=== PATIENT | female | born 1970 | race Caucasian/White ===

== ENCOUNTER 2023-04-23 09:40 | Outpatient (OUT) | payer OTHER, SELFPAY ==
--- NOTE | 2023-04-23 10:11 | MM_ITS ---
Patient: MAIRA GONZALEZ Exam Date: 04/23/2023 : 1970 Gender:F Ordering : Non-Staff Physician Admission #: [id number] Family : CALI MCKEON Order #: [id number] CLICK HERE TO VIEW EXAM RADIOLOGY REPORT PROCEDURE: MM TOMOSYNTHESIS SCREENING BI COMPARISON: MG MAMM SCREEN 3D GISSEL CAD, 12/26/2021. MG MAMM SCREEN 3D GISSEL CAD, 11/22/2020. INDICATIONS: Screening Calculator Name NCI Breast Cancer Risk Assessment Tool 5 Year Breast Cancer Risk 1.20% Lifetime Breast Cancer Risk 8.30% Personal Breast Cancer No Personal Ovarian Cancer No Treatments None Family Cancers Grandfather-paternal with lung/liver cancer at age 70; Aunt-paternal with breast cancer at age ~60; Grandfather-maternal with prostate.lung cancer at age 70. LOCATION: [facility] BREAST COMPOSITION: Scattered areas fibroglandular density. FINDINGS: DIAGNOSTIC CATEGORY 2--BENIGN FINDING. NO CHANGE FROM COMPARISON. Scattered benign-appearing calcifications are present. Scattered benign-appearing lymph nodes are present. RIGHT BREAST: No significant suspicious finding. LEFT BREAST: No significant suspicious finding. RECOMMENDATIONS: ROUTINE MAMMOGRAM AND CLINICAL EVALUATION IN 12 MONTHS. PLEASE NOTE: A NORMAL MAMMOGRAM DOES NOT EXCLUDE THE POSSIBILITY OF BREAST CANCER. A CLINICALLY SUSPICIOUS PALPABLE LUMP SHOULD BE BIOPSIED. Dictated by: Venkat Garcia MD on 04/23/2023 at 11:10 Approved by: Venkat Garcia MD on 04/23/2023 at 11:13
== END 2023-04-23 09:41 | disposition home or self-care (01) ==
LOC: MAMMO 09:40
PROVIDERS: Family Provider Obstetrics & Gynecology; PCP Obstetrics & Gynecology
DX: Z12.31 Encounter for screening mammogram for malignant neoplasm of breast (principal); Z80.1 Family history of malignant neoplasm of trachea, bronchus and lung; Z80.0 Family history of malignant neoplasm of digestive organs
CPT/HCPCS: 77063; 77067

== ENCOUNTER 2024-08-11 09:38 | Outpatient (OUT) | payer OTHER, SELFPAY ==
--- NOTE | 2024-08-11 09:42 | MM_ITS ---
Patient Name: MAIRA GONZALEZ MR#: [id number] : 1970 Exam Date: 08/11/2024 Ordering Doctor: DR RUCHI MONAHAN RADIOLOGY REPORT PROCEDURE: MM TOMOSYNTHESIS SCREENING BI COMPARISON: MM TOMOSYNTHESIS SCREENING BI, 04/23/2023. MG MAMM SCREEN 3D GISSEL CAD, 12/26/2021. MG MAMM SCREEN 3D GISSEL CAD, 11/22/2020. MG MAMM GISSEL SCRN W CAD DIG, 04/11/2013. INDICATIONS: Screening Calculator Name NCI Breast Cancer Risk Assessment Tool 5 Year Breast Cancer Risk 1.20% Lifetime Breast Cancer Risk 8.10% Personal Breast Cancer No Personal Ovarian Cancer No Treatments None Family Cancers Grandfather-paternal with lung/liver cancer at age 70; Aunt-paternal with breast cancer at age ~60; Grandfather-maternal with prostate.lung cancer at age 70. LOCATION: [facility] BREAST COMPOSITION: There are scattered areas of fibroglandular density. FINDINGS: DIAGNOSTIC CATEGORY 2--BENIGN FINDING: RIGHT BREAST: No significant suspicious finding. Scattered benign-appearing calcifications are present. No significant change has occurred. LEFT BREAST: No significant suspicious finding. Scattered benign-appearing calcifications are present. No significant change has occurred. RECOMMENDATIONS: ROUTINE MAMMOGRAM AND CLINICAL EVALUATION IN 12 MONTHS. PLEASE NOTE: A NORMAL MAMMOGRAM DOES NOT EXCLUDE THE POSSIBILITY OF BREAST CANCER. A CLINICALLY SUSPICIOUS PALPABLE LUMP SHOULD BE BIOPSIED. Dictated by: Wilder Gomez M.D. on 08/11/2024 at 12:18 Approved by: Wilder Gomez M.D. on 08/11/2024 at 12:20
== END 2024-08-11 09:39 | disposition home or self-care (01) ==
LOC: MAMMO 09:38
PROVIDERS: Family Provider Obstetrics & Gynecology; PCP Internal Medicine; Visit Provider Obstetrics & Gynecology
DX: Z12.31 Encounter for screening mammogram for malignant neoplasm of breast (principal); Z80.1 Family history of malignant neoplasm of trachea, bronchus and lung; Z80.3 Family history of malignant neoplasm of breast; Z80.42 Family history of malignant neoplasm of prostate
CPT/HCPCS: 77063; 77067

== ENCOUNTER 2025-09-04 10:55 | Outpatient (OUT) | payer OTHER, SELFPAY ==
--- OUTSIDE RECORDS SUMMARY | 2025-09-04 10:58 | XMS_ITS | Clinical Summary ---
Author Organization [facility] Address [address] [place], [place] [id number] Care Team Providers Care Custom Shoemaker Name Role Phone Esdras Harrell DO, Charles Lewis Primary [facility] Provi norma Allergies No known active allergies Medications MedicationSigDispense QuantityRefillsLast FilledStart DateEnd DateStatus ZETIA 10 MG TAB Active SYNTHROID 100 MCG TAB Active Social History Tobacco UseTypesPacks/DayYears UsedDateSmoking Tobacco: NeverAlcohol UseStandard Drinks/WeekCommentsNot Asked0 (1 standard drink = 0.6 oz pure alcohol) CommentsNoSex and Gender InformationValueDate RecordedSex Assigned at BirthNot on fileLegal KrcHurbfo59/02/2012 7:32 AM ESTGender IdentityNot on fileSexual OrientationNot on file Last Filed Vital Signs Vital SignReadingTime TakenCommentsBlood Vqibjxgn575/7509/05/2005 7:35 AM EST Vyvct302309/05/2005 7:35 AM HNVAzippddgokw21.7 ??C (98.1 ??F)09/05/2005 7:35 AM ESTRespiratory Wifv7946 7:35 AM ESTOxygen Hboqykiutg88%09/05/2005 7:35 AM ESTInhaled Oxygen Concentration--Lekwob75 kg (150 lb)07/06/2005 11:00 AM EST Ewtcgn321.5 cm (5' 2 )07/06/2005 11:00 AM ESTBody Mass Index27.441 11:00 AM EST Plan of Treatment Health MaintenanceDue DateLast DoneCommentsAnxiety Kaldxfgwn18/16/1986Depression Yniiuoaio63/16/1986HIV Uaowcurpy27/16/1986Hepatitis C Xnhfcvops15/16/1986 DTaP,Tdap,Td Vaccine (1 - Tdap)01/19/1987Hepatitis B Vaccine (1 of 3 - 19+ 3- dose series)01/19/1987Cervical Cancer Bsbceqeav85/16/1989Mammogram Screening 2008CT Gqbtqctfyaoi36/16/2013Cologuard (FIT-DNA)01/19/2013Colonoscopy 01/19/2013Colorectal Cancer Wfrolfxzc88/16/2013Diabetes Vhxmcaype52/16/2013Fecal Occult Blood01/19/2013Lipid Dhckakbdp00/16/3230Bzalbzkgezzam88/16/2013 Pneumococcal Vaccine: 50+ (1 of 1 - PCV)01/19/2018Shingrix Vaccine (1 of 2) 01/19/2018Covid-19 Vaccine (1 - 2024- season)2025Influenza Vaccine (#1) 2025RSV Vaccine (1 - 1-dose 75+ series)01/19/[address] [place] [address] Care Teams Team MemberRelationshipSpecialtyStart DateEnd Date Rich Dewitt Jr., [facility] [place] [id number] PCP - General06/03/05
--- OUTSIDE RECORDS SUMMARY | 2025-09-04 10:58 | XMS_ITS | Clinical Summary ---
Author Organization [facility] Address [address] [place] [address] Phone Care Team Providers Care Molding Line Operator Name Role Phone AudraRich bo Primary Care Provider + [phone] Social History Tobacco UseTypesPacks/DayYears UsedDateSmoking Tobacco: Never Assessed CommentsUnknownSex and Gender InformationValueDate RecordedSex Assigned at Not on fileLegal SrqXtozon29/24/2024 1:49 PM EDTGender IdentityNot on fileSexual OrientationNot on file Plan of Treatment Health MaintenanceDue DateLast DoneCommentsCT Nntdywckdwdf1968Colonoscopy 1970Colorectal Cancer Jflaxgcwu1968FIT-DNA (Cologuard)1970FIT 1970HIV Pgbmfutop1968Lipid Panel01/20/19686906Vgpmeupaznutu1968MMR Vaccines (1 of 1 - Standard series)01/19/1969Hepatitis C Onzzzbjqg71/16/1986 Hepatitis B Vaccines (1 of 3 - 19+ 3-dose series)01/19/1987Cervical Cancer Qhtgtbjds53/16/1989HPV/Rpximi7201/19/1989Pap Smear01/19/1989DTaP/Tdap/Td Vaccines (1 - Tdap)01/19/1990Pneumococcal Vaccine (1 of 1 - PCV)01/19/2018Zoster Vaccines (1 of 2)01/19/20187572Jtzbtdqin19/19/202203/Yearly Adult Igxccjyj26/03/2025 04/07/2024, 3COVID-19 Vaccine ( season)512/10/2021, 07/11/2021, 10/07/2020, Additional history existsInfluenza Vaccine (#1) 507/, 07/05/2020, 06/06/2019HIB VaccinesAged OutNo longer eligible based on patient's age to complete this topicHPV VaccinesAged OutNo longer eligible based on patient's age to complete this topicHepatitis A VaccinesAged OutNo longer eligible based on patient's age to complete this topic IPV VaccinesAged OutNo longer eligible based on patient's age to complete this topicMeningococcal VaccineAged OutNo longer eligible based on patient's age to complete this topicRotavirus VaccinesAged OutNo longer eligible based on patient's age to complete this topic Insurance * Guarantor: INSTITUTIONAL,BILLING PARAccount TypeRelation to PatientDate of BirthPhoneBilling AddressPersonal/FamilyOther [address] [place] [address] * Guarantor: INSTITUTIONAL,BILLING PARAccount TypeRelation to PatientDate of BirthPhoneBilling AddressPersonal/FamilyOther [address] [place] [address] Care Teams Team MemberRelationshipSpecialtyStart DateEnd Date Rich Dewitt DO [facility] [place] [address] PCP - GeneralInternal Gafmgmlj39/30/24
--- OUTSIDE RECORDS SUMMARY | 2025-09-04 10:58 | XMS_ITS | CCD ---
Author Organization [facility] Care Team Providers Care Meat Team Lead Name Role Phone SHIVAM, DR PALACIOS Admitting Unavailable SHIVAM, DR PALACIOS Attending Unavailable SHIVAM, DR PALACIOS Consulting Unavailable WEST, DR KITA Daley Consulting Unavailable HERO, DR HOPPER Consulting Unavailable Rich Langley DO Primary Care Provider [phone] RICH LANGLEY Referring Unavailable RICH LANGLEY Primary Care Unavailable Rich Langley MD Primary Care Provider [phone] Zachariah JACKSON, Marcia Unavailable Marcia Burleson NP Unavailable Unavailable MARCIA BURLESON Attending Unavailable RUCHI MONAHAN Attending Unavailable Rich Langley MD Primary Care Provider Marcia Burleson NP Unavailable Unavailable Allergies Allergy ClassificationReported Allergen(s)Allergy TypeDate of OnsetReaction(s) Facility (1 source)ALLERGIES NOT ON FILE; Translations: [ALLERGIES NOT ON FILE]Propensity to adverse reactions (disorder)[facility] Repository Medications Current Medications MedicationDrug Class(es)DatesSig (Normalized)Sig (Original)acyclovir 800 mg oral tablet (1 source)Herpesvirus Nucleoside Analog DNA Polymerase Inhibitor, Herpes Simplex Virus Nucleoside Analog DNA Polymerase Inhibitor, Herpes Zoster Virus Nucleoside Analog DNA Polymerase InhibitorStart: 07-84-3633axor 1 tablet by mouth three times daily as neededacyclovir (Zovirax) 800 MG tablet Take 800 mg by mouth 3 (three) times a day as needed 01/02/2025 Activecetirizine hydrochloride 5 mg chewable tablet (5 sources)Histamine-1 Receptor Antagonistcetirizine (ZyrTEC) 5 MG chewable tablet Chew Daily. Activecinnamon bark 500 mg oral capsule (1 source)Start: 91-30-4458opjadyia 500 MG capsule 10/09/2023 Active cyclobenzaprine hydrochloride 10 mg oral tablet (3 sources)Muscle RelaxantStart: 12-05-2024 End: 70-86-7127tjib 1 tablet by mouth at bedtimecyclobenzaprine (Flexeril) 10 MG tablet Indications: Myalgia Take 1 tablet (10 mg) by mouth at bedtime 90 tablet 3 12/20/2024 12/15/2025 Activeempagliflozin 25 mg oral tablet (5 sources)Sodium-Glucose Cotransporter 2 Inhibitorempagliflozin (Jardiance) 25 MG Take by mouth. Activeergocalciferol 1.25 mg oral capsule (5 sources)Provitamin D2 CompoundVitamin D, Ergocalciferol, 79186 units capsule 1 capsule 1 (one) time each day at the same time. Activeestradiol 1 mg oral tablet (5 sources)EstrogenStart: 04-07-2024 End: 77-74-0218jsjv 1 tablet by mouth once dailyestradiol (Estrace) 1 MG tablet Indications: Postmenopausal HRT (hormone replacement therapy) Take 1 tablet (1 mg) by mouth Daily 90 tablet 3 04/20/2025 04/20/2026 Activeezetimibe 10 mg oral tablet (5 sources)Dietary Cholesterol Absorption InhibitorStart: 32-95-2880dyin 1 tablet by mouth in the morningezetimibe (Zetia) 10 MG tablet Take 10 mg by mouth in the morning. 01/25/2023 Activehydrocortisone 25 mg/ml rectal cream (1 source)CorticosteroidStart: 91-18-9237lblznuxmgveszu (Anusol-HC) 2.5 % rectal cream USE DIRECTED RECTALLY 01/03/2025 Activelevothyroxine sodium 0.125 mg oral tablet (5 sources)l-ThyroxineStart: 13-73-6705tfov 1 tablet by mouth in the morning levothyroxine (Synthroid, Levoxyl) 125 MCG tablet Take 125 mcg by mouth in the morning. 01/09/2023 ActivemedroxyPROGESTERone acetate 2.5 mg oral tablet (5 sources)ProgestinStart: 04-07-2024 End: 34-67-6012emdk 1 tablet by mouth once daily, then take 1 tablet by mouth once dailymedroxyPROGESTERone (Provera) 2.5 MG tablet Indications: Postmenopausal HRT (hormone replacement therapy) Take 1 tablet (2.5 mg) by mouth Daily Take 1 tablet by mouth daily. 90 tablet 3 04/20/2025 04/20/2026 Active metFORMIN hydrochloride 1000 mg oral tablet (5 sources)Biguanidetake 1 tablet by mouth in the morningmetFORMIN (Glucophage) 1000 MG tablet Take 1,000 mg by mouth in the morning and 1,000 mg in the even ing. Take with meals. Activemontelukast 10 mg oral tablet (5 sources)Leukotriene Receptor AntagonistSingulair 10 MG tablet 1 (one) time each day at the same time. Activenebivolol 10 mg oral tablet (5 sources)Start: 07-86-6427cfmf 1 tablet by mouth once dailynebivolol (Bystolic) 10 MG tablet Take 10 mg by mouth Daily 03/19/2025 Active End: 52-40-5570udjjyudbm (Bystolic) 5 MG tablet 1 (one) time each day at the same time. 04/20/2025 Discontinued (Therapy completed)Ozempic, 1 MG/DOSE, 4 MG/3ML solution pen-injector (1 source)Start: 79-38-4197kzctqy 1 mg by subcutaneous injection every week Ozempic, 1 MG/DOSE, 4 MG/3ML solution pen-injector INJECT 1 MG UNDER THE SKIN EVERY WEEK DIRECTED. 03/05/2025 Activepitavastatin calcium 2 mg oral tablet (5 sources)HMG-CoA Reductase InhibitorPitavastatin Calcium (Livalo) 2 MG tablet 1 (one) time each day at the same time. Active Problems Problem ClassificationProblemDateDocumented DateEpisodic/ChronicDisorders of lipid metabolism (4 sources)Pure hypercholesterolemia; Translations: [Pure hypercholesterolemia, unspecified]Onset: 425360-14-1011PbnltpqZedilcdpom disorders (1 source)Postmenopausal state; Translations: [Hormone replacement therapy] 01-03-1623OzwfikclGmaea connective tissue disease (2 sources)Muscle pain; Translations: [Myalgia, unspecified site]12-05-2024 EpisodicOther screening for suspected conditions (not mental disorders or infectious disease) (6 sources)Encounter for screening mammogram for malignant neoplasm of breast; Translations: [Cancer cervix screening status]Onset: 94-04-8027YmlnsyfxZzgtzxxz codes; unclassified (1 source)Family history of malignant neoplasm of other respiratory and intrathoracic organs; Translations: [FAM HX MAL NEOPLSM OTH RESP AND IT ORGN] Onset: 62-12-1527WbpvhguaTryxcyah codes; unclassified (1 source)Family history of malignant neoplasm of prostate; Translations: [FAMILY HX MALIG NEOPLASM PROSTATE]Onset: 13-76-9665NwtqmueeLdgwpoeu codes; unclassified (1 source)Family history of malignant neoplasm of other organs or systems; Translations: [FAM HX MALIG NEOPLASM OTH ORGN/SYS]Onset: 04-21-2547Sneiddpw Spondylosis; intervertebral disc disorders; other back problems (2 sources)Degeneration of cervical intervertebral disc; Translations: [Other cervical disc degeneration, unspecified cervical region]85-32-0180Luimuvb Spondylosis; intervertebral disc disorders; other back problems (4 sources)Spinal stenosis in cervical region; Translations: [Spinal stenosis, cervical region]53-91-2780Tsdwxduq Results Test NameValueInterpretationReference RangeFacilityCT CARDIAC SCORING WO IV CONTRASTon 95-95-2276MP CARDIAC SCORING WO IV CONTRASTInterpreted By: Tip Marquez, STUDY: CT CARDIAC SCORING WO IV CONTRAST; 09/04/2024 3:10 pm INDICATION: Signs/Symptoms:SCREENING. ,E78.00 Pure hypercholesterolemia, unspecified COMPARISON: None. ACCESSION NUMBER(S): [id number] ORDERING CLINICIAN: RICH LANGLEY TECHNIQUE: Using prospective ECG gating, CT scan of the coronary arteries was performed without intravenous contrast. Coronary calcium scoring was performed according to the method of Agatston. FINDINGS: The score and distribution of calcium in the coronary arteries is as follows: LM 0, LAD 60.82, LCx 0, RCA 0, Total 60.82 The visualized mid/lower ascending thoracic aorta, is normal in size, measuring 36 mm in diameter. The heart is normal in size. No pericardial effusion is present.Main pulmonary artery is normal in caliber. There is no evidence of lymphadenopathy or mass within the visualized mediastinum.The visualized esophagus is unremarkable. The visualized segments of the lungsare normally expanded. The visualized subdiaphragmatic structures demonstrate no remarkable findings. IMPRESSION: Coronary artery calcium score of 60.82 *. *Coronary Artery Calcium Gated and Nongated Agatston score Score CHD Risk 0 Very low 1-99 Mildly increased 100-299 Moderately increased >300 Moderate to severely increased Kip et al. JCCT 2016 (http://dx.doi.org/10.1016/j.jcct.2016.11.003) YOUSIF 10-Year CHD Risk with Coronary Artery Calcification can be calculated using link below https://www.yousif-nhlbi.org/MESACHDRisk/MesaRiskScore/RiskScore.aspx Sonia james al. JACC 2014 (http://dx.doi.org/10.1016/j.j acc.2015.08.035) MACRO: None Signed by: Tip Marquez 09/18/2024 11:00 AM Dictation workstation: [id number] HospitalMM TOMOSYNTHESIS SCREENING BIon 28-79-4683[place] [address] Mammography Report Signed Patient: SUE GONZALEZ MR#: [id number] : 1970 Acct:[id number] Age/Sex: 54 / F ADM Date: 08/11/24 Loc: MAMMO Attending Dr: RUCHI MONAHAN Ordering Physician: RUCHI MONAHAN Results: Date of Service: 08/11/24 Follow Up: Procedure(s): MM tomosynthesis screening BI Accession Number(s): [id number] cc: RUCHI MONAHAN ; RICH LANGLEY D.O. Patient Name: SUE GONZALEZ MR#: [id number] : 1970 Exam Date: 08/11/2024 Ordering Doctor: DR RUCHI MONAHAN RADIOLOGY REPORT PROCEDURE: MM TOMOSYNTHESIS SCREENING BI COMPARISON: MM TOMOSYNTHESIS SCREENING BI, 04/23/2023. MG MAMM SCREEN 3D GISSEL CAD, 12/26/2021. MG MAMM SCREEN 3D GISSEL CAD, 11/22/2020. MG MAMM GISSEL SCRN W CAD DIG, 04/11/2013. INDICATIONS: Screening Calculator Name NCI Breast Cancer Risk Assessment Tool 5 Year Breast Cancer Risk 1.20% Lifetime Breast Cancer Risk 8.10% Personal Breast Cancer No Personal Ovarian Cancer No Treatments None Family Cancers Grandfather-paternal with lung/liver cancer at age 70; Aunt-paternal with breast cancer at age 60; Grandfather-maternal with prostate.lung cancer at age 70. LOCATION: [facility] BREAST COMPOSITION: There are scattered areas of fibroglandular density. FINDINGS: DIAGNOSTIC CATEGORY 2--BENIGN FINDING: RIGHT BREAST: No significant suspicious finding. Scattered benign-appearing calcifications are present. No significant change has occurred. LEFT BREAST: No significant suspicious finding. Scattered benign-appearing calcifications are present. No significant change has occurred. RECOMMENDATIONS: ROUTINE MAMMOGRAM AND CLINICAL EVALUATION IN 12 MONTHS. PLEASE NOTE: A NORMAL MAMMOGRAM DOES NOT EXCLUDE THE POSSIBILITY OF BREAST CANCER. A CLINICALLY SUSPICIOUS PALPABLE LUMP SHOULD BE BIOPSIED. Dictated by: Wilder Gomez M.D. on 08/11/2024 at 12:18 Approved by: Wilder Gomez M.D. on 08/11/2024 at 12:20 Dictated By: Wilder Gomez M.D. Signed By: 08/11/24 1221 DD/ 122 TD/TT: Machine Pie Maker:TBHRadiology, Radiologist, MD - 08/11/2024 [place] [address] Mammography Report Signed Patient: SUE GONZALEZ MR#: [id number] : 1970 Acct:[id number] Age/Sex: 54 / F ADM Date: 08/11/24 Loc: MAMMO Attending Dr: RUCHI MONAHAN Ordering Physician: RUCHI MONAHAN Results: Date of Service: 08/11/24 Follow Up: Procedure(s): MM tomosynthesis screening BI Accession Number(s): [id number] cc: RUCHI MONAHAN ; RICH LANGLEY D.O. Patient Name: SUE GONZALEZ MR#: [id number] : 1970 Exam Date: 08/11/2024 Ordering Doctor: DR RUCHI MONAHAN RADIOLOGY REPORT PROCEDURE: MM TOMOSYNTHESIS SCREENING BI COMPARISON: MM TOMOSYNTHESIS SCREENING BI, 04/23/2023. MG MAMM SCREEN 3D GISSEL CAD, 12/26/2021. MG MAMM SCREEN 3D GISSEL CAD, 11/22/2020. MG MAMM GISSEL SCRN W CAD DIG, 04/11/2013. INDICATIONS: Screening Calculator Name NCI Breast Cancer Risk Assessment Tool 5 Year Breast Cancer Risk 1.20% Lifetime Breast Cancer Risk 8.10% Personal Breast Cancer No Personal Ovarian Cancer No Treatments None Family Cancers Grandfather-paternal with lung/liver cancer at age 70; Aunt-paternal with breast cancer at age 60; Grandfather-maternal with prostate.lung cancer at age 70. LOCATION: [facility] BREAST COMPOSITION: There are scattered areas of fibroglandular density. FINDINGS: DIAGNOSTIC CATEGORY 2--BENIGN FINDING: RIGHT BREAST: No significant suspicious finding. Scattered benign-appearing calcifications are present. No significant change has occurred. LEFT BREAST: No significant suspicious finding. Scattered benign-appearing calcifications are present. No significant change has occurred. RECOMMENDATIONS: ROUTINE MAMMOGRAM AND CLINICAL EVALUATION IN 12 MONTHS. PLEASE NOTE: A NORMAL MAMMOGRAM DOES NOT EXCLUDE THE POSSIBILITY OF BREAST CANCER. A CLINICALLY SUSPICIOUS PALPABLE LUMP SHOULD BE BIOPSIED. Dictated by: Wilder Gomez M.D. on 08/11/2024 at 12:18 Approved by: Wilder Gomez M.D. on 08/11/2024 at 12:20 Dictated By: Wilder Gomez M.D. Signed By: 08/11/24 1221 DD/ 1221 TD/TT: Machine Pie Maker: [facility] CenterRadiology Study observation (narrative)[facility] TOMOSYNTHESIS SCREENING BIOrdered By: Radiologist Radiology on 15-82-9981XWOIRusk Rehabilitation Center Work Phone: MG MAMM SCREEN 3D GISSEL CADon 87-41-1004EQ MAMM SCREEN 3D GISSEL CADPatient: SUE GONZALEZ Exam Date: 12/26/2021 : 1970 Gender:F Ordering : DR RICH LANGLEY D.O. Admission #: [id number] Family : Order #: [id number] CLICK HERE TO VIEW EXAM RADIOLOGY REPORT PROCEDURE: MAMMOGRAM SCREENING 3D BILATERAL CAD COMPARISON: MG MAMM SCREEN GISSEL W CAD, 07/28/2019. MG MAMM SCREEN 3D GISSEL CAD, 11/22/2020. INDICATIONS: Screening mammography Calculator Name NCI Breast Cancer Risk Assessment Tool 5 Year Breast Cancer Risk 1.10% Lifetime Breast Cancer Risk 8.60% Personal Breast Cancer No Personal Ovarian Cancer No Treatments None Family Cancers Grandmother-maternal with prostate/ lung cancer at age 70; Grandfather-paternal with lung/liver cancer at age 70. LOCATION: [facility] BREAST COMPOSITION: Scattered areas fibroglandular density. FINDINGS: DIAGNOSTIC CATEGORY 2--BENIGN FINDING. NO CHANGE FROM COMPARISON. Scattered benign-appearing nodules are present. Scattered benign-appearing calcifications are present. Scattered benign-appearing lymph nodes are present. RIGHT BREAST: No significant suspicious finding. LEFT BREAST: No significant suspicious finding. RECOMMENDATIONS: ROUTINE MAMMOGRAM AND CLINICAL EVALUATION IN 12 MONTHS. PLEASE NOTE: A NORMAL MAMMOGRAM DOES NOT EXCLUDE THE POSSIBILITY OF BREAST CANCER. A CLINICALLY SUSPICIOUS PALPABLE LUMP SHOULD BE BIOPSIED. Dictated by: Kita Garcia MD on 12/29/2021 at 07:44 Approved by: Kita Garcia MD on 12/29/2021 at 07:46[facility] Vital Signs Date TimeVital SignValuePerforming UcnljebwnTnuvluyl97-77-4833 09:37-0400Body giwust902.5 cmRuchi Monahan DO Work Phone: VideoBurstMercy Hospital JoplinNhcgjxuqzb67-69-3356 09:37-0400Body mass index (BMI) [Ratio]27.44 kg/p0WxvyqsfRuchi Monahan DO Work Phone: VideoBurstMercy Hospital JoplinDilelmuiuv79-24-6743 09:37-0400Body cifbzm05.04 kgRuchi Monahan Intapp Work Phone: VideoBurstMercy Hospital JoplinTpuhqtxlwl37-95-4339 09:37-0400Diastolic blood jspkuskk84 mm[Hg]Ruchi Monahan DO Work Phone: noMercy Hospital JoplinFgnujjxocx06-60-7680 09:37-0400Systolic blood vkdysyoz823 mm[Hg]Ruchi Monahan DO Work Phone: noMercy Hospital JoplinCgxgxwzmdq09-95-9396 08:05-0400Body usuuhw682.5 Bridgette Burleson COMPUTER GAME DESIGNER Work Phone: noMercy Hospital JoplinSoddunbubk10-89-9820 08:05-0400Body mass index (BMI) [Ratio]27.62 kg/b1TfhlvMarcia Burleson COMPUTER GAME DESIGNER Work Phone: noMercy Hospital JoplinYxclsfbbfd29-84-4772 08:05-0400Body .49 kgMarcia Burleson COMPUTER GAME DESIGNER Work Phone: noMercy Hospital JoplinUbyfcjjfzx36-73-5457 08:05-0400Diastolic blood taeyiqkk80 mm[Hg]Marcia Burleson COMPUTER GAME DESIGNER Work Phone: noMercy Hospital JoplinNsbemuhsqo21-06-6067 08:05-0400Systolic blood gmtxoumv273 mm[Hg]Marcia Burleson COMPUTER GAME DESIGNER Work Phone: noDC Healthcare Encounters Encounter DateEncounter TypeCare ProviderFacilityStart: 04-20-2025 End: 02-64-9316Ndbpltg encounter statusRuchi Monahan DO Work Phone: noms HealthcareStart: 04-20-2025 End: 26-07-5537Szyywlao preventive med est patient 40-64yrsWilliam Franck Lighter DO Work Phone: noms [place] OBGYNComment on above:Encounter for gynecological examination without abnormal finding; Screening for malignant neoplasm of cervix; Breast cancer screening by mammogram; Postmenopausal HRT (hormone replacement therapy)Start: 04-20-2025 End: 62-33-3531kvxewlqkmxIRYXNXE D BRUNERNot AvailableStart: 12-05-2024 End: 53-52-2028Kywmhi Jose Milleroll COMPUTER GAME DESIGNER Work Phone: aNA BELLEVUEStart: 12-05-2024 End: 78-49-0356Kpyvyz flowsYasir Milleroll COMPUTER GAME DESIGNER Work Phone: aNA BELLEVUEStart: 12-05-2024 End: 65-26-3509Gtcpae outpatient visit 15 minutesSamarleen Milleroll COMPUTER GAME DESIGNER Work Phone: ana BELLEVUEComment on above:DDD (degenerative disc disease), cervical (Primary Dx); Cervical spinal stenosis; Cervical radiculopathy; MyalgiaStart: 12-05-2024 End: 35-91-6496allzafiumzGDCLS CARROLLNot AvailableStart: 09-04-2024 End: 85-45-6904Jvyedfthyn hospital visit by physicianEly Ct [address] [place], [place] [address]Comment on above:Pure hypercholesterolemia, unspecifiedStart: 09-04-2024 End: 21-82-6037zjoepexjocUYKACQAHenry County Hospitaltart: 08-11-2024 End: 40-17-6889Wukzwcnlp Result EncounterRuchi Monahan DO Work Phone: NOVG External Department UnsolicitedStart: 08-11-2024 End: 62-50-6544Bbocpljin Result EncounterRuchi Juárez Hero DO Work Phone: NOJW External Department UnsolicitedStart: 12-26-2021 End: 24-01-6741ipsstkowhgJIMiddletown HospitalFacility:H1 Procedures DateProcedureProcedure DetailPerforming ClinicianStart: 97-54-9719EG TOMOSYNTHESIS SCREENING Helen Monahan DO Work Phone: start: 96-93-0498FptcwywxvsmWvtbi Carroll COMPUTER GAME DESIGNER Work Phone: Start: 26-04-2095Wxfluzyojxu observation [Identifier] in Cervix by Cyto Shawanda Burleson COMPUTER GAME DESIGNER Work Phone: Start: 46-35-9830BjrzgeuhccxPhs 1 Plan of Treatment DateCare ActivityDetailAuthorStart: 45-49-1965Crrpdulej for malignant neoplasm of cervixNOMS HealthcareStart: 02-00-4963Bkihmegzi for malignant neoplasm of cervixNOMS HealthcareStart: 66-95-5727Cmbhrjnag for malignant neoplasm of cervix Pap SmearNOMS HealthcareStart: 04-26-2026 End: 58-68-1662Fidihhv encounter /21/2026 9:15 AM EDT Office Visit KEITH GUEVARA [address] [place] [phone] Ruchi Monahan DO [address] [place] [address] KEITH ZHONGtart: 12-04-2025 End: 97-65-5572Rysodsz encounter prdoqrnvt95/31/2026 8:20 AM EDT Office Visit DORENE [place] [address] [place] [phone] Marcia Burleson NP [address] [place] [phone] DORENE OSPINAtart: 87-96-8425Veiqrfotm for malignant neoplasm of breastMammogramNOMS HealthcareStart: 14-92-0535Dzydyxfli vaccinationNOMS HealthcareStart: 04-13-2025 End: 82-27-9359Qhxdegc encounter tkkrfyjsg25/08/2025 9:15 AM EDT Office Visit [facility] STEVEN [facility] [address] [place] [address] Ruchi Monahan DO [address] [place] [address] NOMS SWS OBStart: 77-18-5801Uvkqsmpwz for malignant neoplasm of colonNOMS HealthcareStart: 12-05-2024 End: 46-12-1347Sgdbgro encounter jnigpavjo07/01/2025 8:20 AM EDT Office Visit DORENE [place] [address] [place] [phone] Marcia Burleson NP [address] [place] [phone] Lul COLL[place]OComment on above:ArrivedStart: 98-35-7866UGJZG-19 Vaccine ( season)COVID-19 Vaccine ( season)[facility] HospitalStart: 46-41-4777Rmyeiuneo vaccinationInfluenza Vaccine (#1)[facility] HospitalStart: 60-20-6182Tqwmlgspx for malignant neoplasm of breastMammogramUnGuernsey Memorial HospitalStart: 95-65-8903Kdvyfzskpkja vaccinationPneumococcal Vaccine (1 of 1 - PCV)[facility] Start: 10-79-8957Mhjgix Vaccines (1 of 2)Zoster Vaccines (1 of 2)[facility]: 63-42-1765SDvE/Tdap/Td Vaccines (1 - Tdap) DTaP/Tdap/Td Vaccines (1 - Tdap)[facility]: 17-05-3614Fcihweqhu for malignant neoplasm of cervixFort [facility] Hospital: 17-10-2723Yzlfymwxw B Vaccines (1 of 3 - 19+ 3-dose series) Hepatitis B Vaccines (1 of 3 - 19+ 3-dose series)[facility]: 00-96-6880Nazcclnmo C screeningHepatitis C ScreeningFort Hamilton Hospital: 61-64-8702FAZ Vaccines (1 of 1 - Standard series) MMR Vaccines (1 of 1 - Standard series)[facility]: 09-88-4911TJR screeningHIV ScreeningFort Hamilton Hospital: 54-86-8363Jcgyr panelLipid PanelFort Hamilton Hospital: 02-17-3032Gninzzked for malignant neoplasm of colonUnMadison Health: 48-71-6810Reesea Adult PhysicalYearly Adult PhysicalUnGuernsey Memorial Hospital End: 63-97-0711YN for calcium scoring WO contrast and CTA W contrast IV Heart and coronary arteriesGILA REGIONAL [facility] Service Area Work Phone: Comment on above:Once for 1 Occurrences starting 09/04/2024 until 09/04/2024IGP, APT HPV,RFX 16/18,45IGP, APT HPV,RFX 16/18,45 Lab Routine Screening for malignant neoplasm of cervix Ordered: 04/20/2025[facility] Work Phone: comment on above:Ordered: 04/20/2025 Immunizations Immunization DateImmunizationNotesCare SebabqdpMgtcrldo48-83-5824lqmyhymbj, injectable, quadrivalent, preservative freeSararoverto Burleson COMPUTER GAME DESIGNER Work Phone: [facility] CenterWyzrjtzlab35-19-7227zrwpipjxo virus vaccine, unspecified formulationEly [address] [place] [address] Work Phone: 1(611) 187-737510606950-16-2610jkdojarxg, injectable, quadrivalent, preservative freeSararoverto Burleson COMPUTER GAME DESIGNER Work Phone: [facility] CenterZzfokmlovw60-70-9575zxknustzs, injectable, quadrivalent, preservative apolinarMarcia Zachariah COMPUTER GAME DESIGNER Work Phone: [facility] Healthcare Payers DatePayer CategoryPayerPolicy [id number] Care (Private)[facility] [id number] [place] [id number] Private Health [id number] .[id number] Social History DateTypeDetailFacilityTobacco smoking status NHISTobacco smoking consumption unknownTriHealth Bethes[facility] Hospital Work Phone: Start: 79-56-3091Ysg assigned at birthNot on file [facility] Work Phone: Start: 04-02-2023 End: 49-75-1533Xpyyxr identityNot on fileTriHealth Bethesda Butler Hospital Work Phone: Start: 08-25-2024 End: 14-63-1946Ipvgfzyt to SARS-CoV-2 (event)Not sureTriHealth Bethesda Butler HospitalStart: 67-17-1702Xhwqldi smoking status NHISNever smoked tobaccoNOMS HealthcareStart: 84-43-2339Gjkfnox use and exposureSmokeless tobacco non-user [facility] HealthcareStart: 04-07-2024 End: 16-38-8983Tcayemaka beverage intakeCurrent drinker of alcohol (finding)[facility]S HealthcareStart: 04-02-2023 End: 61-89-6952Alacbfm of Social functionNOMS HealthcareHow often to you have a drink containing alcohol?Monthly or lessNOMS HealthcareHow many standard drinks containing alcohol do you have on a typical day?1 or 2NOMS HealthcareHow often do you have 6 or more drinks on 1 occasion?NeverNOMS HealthcareStart: 04-02-2023 Alcohol Comment1-2 drinks less than monthly in the past year, Caffeine intake: 1/2 can of pop per dayNOMS HealthcareStart: 12-63-5295Gpd assigned at FemaleNOMS HealthcareStart: 00-06-9954Yghygd identityIdentifies as female gender (finding)NOMS HealthcareStart: 95-32-2856Uibuonk Comment1-2 drinks less than monthly in the past year. Caffeine intake: 1/2 can of pop per dayNOMS Healthcare Start: 23-12-6043HtvIwregtGDBK Healthcare Functional Status DovzUenigjyrwoIauzzcIwqyajwt70-60-6021Oiqypim Health Questionnaire 2 item (PHQ- 2) [Reported][facility] Sonxwlvtkj53-86-0084Fxens score [AUDIT-C]1 04/20/2025 9:41 AM EDT Tamiko Tejada [facility] History of Present illness Narrative 04-20-2025 Note Date & DwahDqghWtwalzem02-27-6346 History of Present illness Narrative* Carol Larsen MA - 04/20/2025 9:30 AM EDT Images from the original note were not included. Ruchi Monahan, DO Obstetrics and Gynecology Sue Gonzalez 1970 04/20/25 [id number] Yearly Wellness Exam Chief Complaint Patient presents with Gynecologic Exam LMP: 2020 HRT: Estradiol 1 MG, Provera 2.5 MG Last pap 04-07-24 neg. Last mammogram 08-09-24 [facility] by PCP. Denies breast, urinary, or bowel concerns. Visit Vitals BP 128/84 Ht 5' 2 Wt 150 lb BMI 27.44 kg/m OB Status Postmenopausal Smoking Status Never BSA 1.72 m OB History Para Term AB Living 3 2 1 1 2 SAB IAB Ectopic Multiple Live Births 1 2 # Outcome Date GA Lbr Omar/2nd Weight Sex Type Anes PTL Lv 3 Term 2000 8 lb 11 oz M CS-LTranv JD 2 Para 1997 6 lb 15 oz F CS-LTranv JD 1 SAB 1995 Comments: empty sac syndrome Current Outpatient Medications Medication Sig Dispense Refill acyclovir (Zovirax) 800 MG tablet Take 800 mg by mouth 3 (three) times a day as needed cinnamon 500 MG capsule hydrocortisone (Anusol-HC) 2.5 % rectal cream USE DIRECTED RECTALLY nebivolol (Bystolic) 10 MG tablet Take 10 mg by mouth Daily Ozempic, 1 MG/DOSE, 4 MG/3ML solution pen-injector INJECT 1 MG UNDER THE SKIN EVERY WEEK DIRECTED. cetirizine (ZyrTEC) 5 MG chewable tablet Chew Daily. cyclobenzaprine (Flexeril) 10 MG tablet Take 1 tablet (10 mg) by mouth at bedtime 90 tablet 3 empagliflozin (Jardiance) 25 MG Take by mouth. estradiol (Estrace) 1 MG tablet Take 1 tablet (1 mg) by mouth Daily 90 tablet 3 ezetimibe (Zetia) 10 MG tablet Take 10 mg by mouth in the morning. levothyroxine (Synthroid, Levoxyl) 125 MCG tablet Take 125 mcg by mouth in the morning. medroxyPROGESTERone (Provera) 2.5 MG tablet Take 1 tablet (2.5 mg) by mouth Daily Take 1 tablet by mouth daily. 90 tablet 3 metFORMIN (Glucophage) 1000 MG tablet Take 1,000 mg by mouth in the morning and 1,000 mg in the evening. Take with meals. Pitavastatin Calcium (Livalo) 2 MG tablet 1 (one) time each day at the same time. Singulair 10 MG tablet 1 (one) time each day at the same time. Vitamin D, Ergocalciferol, 58965 units capsule 1 capsule 1 (one) time each day at the same time. No current facility-administered medications for this visit. No Known Allergies Past Surgical History: Procedure Laterality Date BREAST SURGERY 2004 reduction- [facility] SECTION, LOW TRANSVERSE x2 CHOLECYSTECTOMY 2005 D&C FIRST TRIMESTER / TX INCOMPLETE / MISSED / SEPTIC / INDUCED 1995 HEMORRHOID SURGERY 2006 OTHER SURGICAL HISTORY 2009 eyelid surgery Past Medical History: Diagnosis Date CHF (congestive heart failure) (HCC) Diabetes mellitus (HCC) Headache, tension-type Hemorrhoids Hyperlipidemia Hypertension Hypothyroidism Numbness Peripheral neuropathy Thyroid disease ROS Const: Denies appetite change, fever, chills. Allergy: Denies medication reaction. Ocular: Denies visual acuity change. ENT: Denies hearing change. Endoc: Denies weight loss. Resp: Denies dyspnoea, wheezing. Cardiac: Denies angina, palpitations. GI: Denies nausea, vomiting. Haem: Denies bleeding. : Denies incontinence. MSK: Denies arthralgias, joint oedema. Derm: Denies rash, hair loss. Neuro: Denies ataxia, tremor. Also see HPI for elements of ROS documented therein and for details of positive findings, which shall supersede the foregoing. EXAM GENERAL EXAMINATION alert oriented well developed, well nourished. HEAD: normocephalic atraumatic. EYES: sclera anicteric. EARS: no obvious hearing deficit. NECK/THYROID: neck supple no cervical lymphadenopathy no thyromegaly. LYMPH NODES: no axillary, supraclavicular or inguinal adenopathy. SKIN: warm and dry. HEART: regular rate and rhythm. LUNGS: clear to auscultation bilaterally. CHEST:axillary nodes grossly normal. BREASTS:no masses palpable bilaterally, normal nipples bilaterally - everted - fatty replaced - dense - well supported- axilla negative. ABDOMEN: soft, nontender, nondistended, no masses palpable. BACK: no costovertebral angle tenderness, no obvious scoliosis/kyphosis. FEMALE GENITOURINARY:distribution sales representative in room -good hormone - normal vaginal mucosa - Multip 1-2 mm os - able to sample - small cervix absent of lesions - non tender uterus AV smaller nl mobile - ovaries non palpable and non tender - cul-de-sac negative RECTAL:normal tone , no masses palpable , only small external hemorrhoids. EXTREMITIES no edema. NEUROLOGIC: alert and oriented. PSYCH: cooperative with exam. ICD-10-CM 1. Encounter for gynecological examination without abnormal finding Z01.419 Pelvic and breast exam completed. Findings of today's exam discussed with the patient. Continue MSBE. Ca/Vit D recommendations reviewed with the patient. The patient is to contact the office with anychanges to her gynecological condition or any changes with breast or bleeding. The patient is to return in 1 year or as needed 2. Screening for malignant neoplasm of cervix Z12.4 IGP, APT HPV,RFX 16/18,45 Thinprep collected. Will notify patient if results are abnormal. 3. Breast cancer screening by mammogram Z12.31 Ordered by PCP 4. Postmenopausal HRT (hormone replacement therapy) Z79.890 medroxyPROGESTERone (Provera) 2.5 MG tablet estradiol (Estrace) 1 MG tablet Tolerating well Entered by Carol Larsen MA acting as scribe for Dr. Ruchi Monahan. Signature Carol Larsen MA Date 04/20/25 . Time 9:50 AM . The documentation recorded by the scribe accurately reflects the service(s) I personally performed and the decisions I made. Signature Napoleon Monahan D.O. Date 04/20/25 Time 5:00PM. [facility] History of Present illness Narrative 12-05-2024 Note Date & [id number] History of Present illness Narrative* Marcia Burleson, COMPUTER GAME DESIGNER - 12/05/2024 8:20 AM EDT Images from the original note were not included. Chief Complaint Patient presents with Follow-up Numbness Subjective Sue Gonzalez is a 54 y.o. female. History of Present Illness The patient presents today for follow-up. She was most recently evaluated in our office on 11/02/2023 by DEBI Arroyo. She reports doing well since that time. The patient reports rare pain in the posterior neck. This can be triggered by increased activity and sleeping in certain positions. It is tolerable and does not radiate to the upper extremities. The patient also reports occasional, twinges, of pain in the left trapezius muscle and elbow. She states this can occur if she, overdoes it, with activity. She has constant numbness, tingling, and reduced sensation in the 2nd digit of the left hand which is chronic. Her right hand can briefly fall asleep if she is holding her phone for long period of time, but this is infrequent. She denies numbness or paresthesias in any other locations. She denies weakness. She denies balance difficulty, gait d isturbance, coordination difficulty, or falls. She denies bowel or bladder dysfunction or incontinence. She is taking cyclobenzaprine 10 mg daily at bedtime which has provided benefit for her symptoms. She believes her symptoms are well controlled on the current regimen. Review of Systems Constitutional: Negative for appetite change, chills, fatigue, fever and unexpected weight change. HENT: Negative for drooling, trouble swallowing and voice change. Eyes: Negative for visual change, double vision or loss of vision Respiratory: Negative for cough, shortness of breath and wheezing. Cardiovascular: Negative for chest pain and palpitations. Gastrointestinal: Negative for abdominal pain, blood in stool, nausea and vomiting. Musculoskeletal: Positive for arthralgias and neck pain. Negative for gait problem and myalgias. Neurological: Positive for tremors and numbness. Negative for dizziness, seizures, syncope, facial asymmetry, speech difficulty, weakness, light- headedness and headaches. Negative for shuffling gait Psychiatric/Behavioral: Negative for confusion, hallucinations and suicidal ideas. The patient is not nervous/anxious. Home Medication List Bystolic 5 MG tablet; Generic drug: nebivolol cetirizine 5 MG chewable tablet; Commonly known as: ZyrTEC cyclobenzaprine 10 MG tablet; Commonly known as: Flexeril estradiol 1 MG tablet; Commonly known as: Estrace; Take 1 tablet (1 mg) by mouth Daily ezetimibe 10 MG tablet; Commonly known as: Zetia Jardiance 25 MG; Generic drug: empagliflozin levothyroxine 125 MCG tablet; Commonly known as: Synthroid, Levoxyl Livalo 2 MG tablet; Generic drug: Pitavastatin Calcium medroxyPROGESTERone 2.5 MG tablet; Commonly known as: Provera; Take 1 tablet (2.5 mg) by mouth Daily Take 1 tablet by mouth daily. metFORMIN 1000 MG tablet; Commonly known as: Glucophage Singulair 10 MG tablet; Generic drug: montelukast Vitamin D (Ergocalciferol) 71336 units capsule Past Medical History: Diagnosis Date CHF (congestive heart failure) (CMS/HCC) Diabetes mellitus (CMS/HCC) Headache, tension-type Hemorrhoids Hyperlipidemia (CMS/HCC) Hypertension (CMS/HCC) Hypothyroidism (CMS/HCC) Numbness Peripheral neuropathy x2 Thyroid disease (CMS/HCC) Past Surgical History: Procedure Laterality Date BREAST SURGERY 2004 reduction- [facility] SECTION, LOW TRANSVERSE 1997, 2000 CHOLECYSTECTOMY 2005 D&C FIRST TRIMESTER / TX INCOMPLETE / MISSED / SEPTIC / INDUCED 1996 HEMORRHOID SURGERY 2006 OTHER SURGICAL HISTORY 2009 eyelid surgery Family History Problem Relation Name Age of Onset Parkinsonism Mother Natalie Diabetes Mother Natalie Hypertension Mother Natalie Osteoarthritis Mother Natalie Anxiety disorder Mother Natalie Fibromyalgia Mother Natalie Coronary artery disease Father Norm Hyperlipidemia Father Norm Stroke Sister Monae Migraines Sister Monae Migraines Mother's Sister Mariama Social History Tobacco Use Smoking status: Never Smokeless tobacco: Never Substance Use Topics Alcohol use: Yes Comment: 1-2 drinks less than monthly in the past year. Caffeine intake: 1/2 can of pop per day Allergies: Patient has no known allergies. Vitals: 12/05/24 0805 BP: 126/72 Body mass index is 27.62 kg/m . weight: 151 lb Neurologic exam: Mental status and general appearance: Awake and alert with unlabored respirations. Oriented to person, place, and time. Recent and remotememory are intact. Speech is clear and fluent without aphasia. Speech is non-dysarthric. Attention and concentration are normal. Fund of knowledge is appropriate for level of education. Pleasant. Cranial nerves: CN II: Visual acuity is normal. Visual barlow full to confrontation. CN III, IV, : Pupils are equal, round, and reactive to light. Extraocular movements intact. No ptosis present. CN V: Facial sensation is normal. CN VII: Full and symmetric facial movement. CN VIII: Hearing is normal to finger rub bilaterally. CN IX and X: Palate elevates symmetrically. CN XI: Shoulder shrug is normal bilaterally. CN XII: Tongue is midline without atrophy or fasciculation. Motor: RUE strength deltoid , biceps , triceps , wrist extensors , wrist flexor , and home school teacher strength 5/5. LUE strength deltoid , biceps , triceps , wrist extensors , wrist flexor , and home school teacher strength 5/5. RLE strength iliopsoas, quadriceps, tibialis anterior, and plantar flexion strength 5/5. LLE strength iliopsoas, quadriceps, tibialis anterior, and plantar flexion strength 5/5. Tone and bulk are normal. No rigidity. No action or rest tremor observed. Sensory: Sensation is intact to light touch throughout all four extremities. Mildly reduced in the 2nd digitof the left hand. Sensation is intact to temperature in all extremities. Reflexes: RUE biceps reflex 3+ , brachioradialis reflex 3+. LUE biceps reflex 3+ , brachioradialis reflex 3+. RLE knee reflex 3+. LLE knee reflex 3+. Lopes's sign negative. Coordination: Dkydbc-fu-hadr testing normal. Rapid alternating movements are normal. No bradykinesia. Gait: Normal. No magnetic gait. Review and summary of old records: EMG of the bilateral upper extremities at [facility] [place] 08/18/19: Bilateral C8, mild. EMG of the bilateral upper extremities at [facility] on 09/01/16: Mention of a brachial plexopathy without evaluation of the medial or lateral antebrachial cutaneous nerves drawing into question the validity of the test. MRI of the cervical spine at [facility] on 08/07/16: Disc herniations with spondylosis and facet disease at C5/6 and C6/7 with central and foraminal stenosis. Specifically, there is evidence of subtle cord compression at C5-C6. Assessment/Plan Diagnoses and all orders for this visit: DDD (degenerative disc disease), cervical Cervical spinal stenosis Cervical radiculopathy Ms. Gonzalez is a 54-year-old female with a history of cervical DDD, cervical spinal stenosis, and cervical radiculopathy. [facility] EMG on 08/18/2019 identified mild bilateral C8 radiculopathies. MRI of the cervical spine from 08/07/2016 revealed spinal canal and neural foraminal stenosis with evidence of subtle myelopathy at C5-C6. The patient's symptoms in regard to this have remained subjectively stable since the prior neurology appointment approximately 1 year ago. The patient reports rare posterior neck pain and infrequent, twinges, of pain in the left trapezius muscle and elbow. She has chronic numbness in the 2nd digit of the left hand but otherwise denies any significant symptoms of cerv ical radiculopathy or myelopathy. No pathologic hyperreflexia or ataxia. Her gait and coordination are normal, and she denies focal weakness or bowel/bladder dysfunction. The patient's primary pain seems to pertain to myalgia affecting the posterior neck and trapezius muscles which is likely related to her degenerative disease. PLAN: - Monitor clinically - Continue cyclobenzaprine 10 mg daily at bedtime as needed for neck tension/muscle spasms - We discussed referral to neurosurgery for evaluation and surgical opinion given the presence of cervical myelopathy. The patient politely declined referral and does not wish to pursue this at this time due to symptom stability. She understands that, without surgical intervention, cervical myelopathy does have the potential to cause progressive neurologic deficits. Will have her monitor closely for these and would consider updated MRI and neurosurgery referral in the future should her symptomsworsen - Red flag signs and symptoms of spinal cord compression/myelopathy (including sensory loss, numbness, paresthesias, weakness, gait disturbance, bowel/bladder dysfunction, and urinary urgency/frequency) were discussed with the patient. The patient understands to notify our office urgently or seekcare in the emergency department if she experience develops any new or worsening symptoms of these in the future Myalgia See above. Well managed on cyclobenzaprine Tremor The patient reports a mild, intermittent action tremor of the hands which she has noticed at times when drawing blood. This is not functionally limiting, and she denies rest tremor. She does not meetcriteria for Parkinson's diseased based on clinical exam. I believe this could represent essential tremor. PLAN: - Monitor clinically - Symptoms are not bothersome to the patient, and she does not wish to trial any medication for tremor currently. She has been advised to notify the office should her symptoms become more bothersome or interfere with her activities in the future There is a positive family history of Parkinson's disease in the patient's mother. Diagnosis and treatment options discussed in detail. All questions answered. The patient verbalizesunderstanding and is agreeable to the plan. Discussion in layman's terms. Follow up in the office within 1 year; sooner if needed for new or worsening symptoms. Marcia Bruleson NP [facility] documented in this [facility] Instructions 12-05-2024 Note Date & [id number] Instructions* Patient Instructions* Marcia Burleson NP - 12/05/2024 8:20 AM EDT - Continue cyclobenzaprine as directed documented in this [facility] Evaluation note Note Date & TypeNoteFacilityEvaluation note* Diagnosis Pure hypercholesterolemia, unspecified documented in this encounter [facility] Work Phone: Evaluation note Note Date & TypeNoteFacilityEvaluation note* Diagnosis DDD (degenerative disc disease), cervical- Primary Degeneration of cervical intervertebral disc Cervical spinal stenosis Spinal stenosis in cervical region Cervical radiculopathy Brachial neuritis or radiculitis nos Myalgia Unspecified myalgia and myositis documented in this encounter [facility] Evaluation note Note Date & TypeNoteFacilityEvaluation note* Diagnosis Encounter for gynecological examination without abnormal finding Screening for malignant neoplasm of cervix Screening for malignant neoplasm of the cervix Breast cancer screening by mammogram Postmenopausal HRT (hormone replacement therapy) Need for prophylactic hormone replacement therapy (postmenopausal) documented in this encounter [facility] Reason for visit Narrative Note Date & TypeNoteFacilityReason for visit Narrative* Imaging (Routine) - Pending ReviewSpecialtyDiagnoses / ProceduresReferred By ContactReferred To ContactRadiology Diagnoses Pure hypercholesterolemia, unspecified Procedures CT cardiac scoring wo IV contrast Rich Langley DO [address] [place] [address] Phone: tel: fax: Referral IDStatusReasonStart DateExpiration DateVisits RequestedVisits [id number] Review Perform Procedure [facility] Work Phone: Summary Purpose Family History No Family History Records FoundNo Family History Records FoundNo Family History Records Found Advance Directives No Advanced Directives Records FoundNo Advanced Directives Records FoundNo Advanced Directives Records Found Additional Source Comments INFORMATION SOURCE (unrecogn ized section and content) DATE CREATED AUTHOR 01/03/2022 [facility] DATE CREATED AUTHOR AUTHOR'S ORGANIZ ATION 09/21/2024 [facility] DATE CREATED AUTHOR AUTHOR'S ORGANIZ ATION 04/22/2025 [facility] EPIC Care Teams (unrecognized sec tion and content) Team MemberRelationshipSpecialtyStart DateEnd Date Rich Langley DO [address] [place], [place] [phone] PCP - GeneralInternal Rnppneai28/30/24Team MemberRelationshipSpecialtyStart Date End Date Rich Langley MD [address], [place] [phone] PCP - GeneralInternal Medicine04/02/23 Marcia Burleson NP [address] [phone] Nurse PractitionerNeurology12/05/24Team MemberRelationshipSpecialtyStart DateEnd Date Rich Langley MD [address] [place], [place] [phone] PCP - GeneralInternal Medicine04/02/23 Marcia Burleson NP [address] [phone] Nurse PractitionerNeurology12/05/24Team MemberRelationshipSpecialtyStart DateEnd Date Rich Langley MD [address] [place] [address] PCP - GeneralInternal Medicine04/02/23 Marcia Burleson NP [address] [place] [address] Nurse PractitionerNeurology12/05/24Te MemberRelationshipSpecialtyStart DateEnd Date Rich Langley MD [address] [facility] [place] [address] PCP - GeneralInternal Medicine04/02/23 Marcia Burleson NP [facility] [place] [address] Nurse PractitionerNeurology12/05/24 Reason for Visit (unrecogniz ed section and content) ReasonCommentsFollow-upNumbnessReasonCommentsGynecologic ExamLMP: 2020HRT: Estradiol 1 MG, Provera 2.5 MGLast pap 04-07-24 neg.Last mammogram 08-09-24 [facility] by PCP. Denies breast, urinary, or bowel concerns. FOR RECORDS PERTAINING TO PATIENTS WHO ARE OR HAVE BEEN ENROLLED IN A CHEMICAL DEPENDENCY/SUBSTANCEABUSE PROGRAM, SOME INFORMATION MAY BE OMITTED. This clinical summary was aggregated from multiple sources. Caution should be exercised in using it in the provision of clinical care. This summary normalizes information from multiple sources, and as a consequence, information in this document may materially change the coding, format and clinical context of patient data. In addition, data may be omitted in some cases. CLINICAL DECISIONS SHOULD BE BASED ON THE PRIMARY CLINICAL RECORDS. [facility] [facility]. provides no warranty or guarantee of the accuracy or completeness of information in this document.
--- OUTSIDE RECORDS SUMMARY | 2025-09-04 10:58 | XMS_ITS | Clinical Summary ---
Author Organization [facility] Address [address] [place] [address] Care Team Providers Care Cad Cam Programmer Name Role Phone Rich Langley MD Primary Care Provider + [phone] Lubna Soni NP Unavailable [phone] Allergies No known active allergies Medications MedicationSigDispense QuantityRefillsLast FilledStart DateEnd DateStatus empagliflozin (Jardiance) 25 MG Take by mouth.Active metFORMIN (Glucophage) 1000 MG tablet Take 1,000 mg by mouth in the morning and 1,000 mg in the evening. Take with meals.Active Singulair 10 MG tablet 1 (one) time each day at the same time.Active levothyroxine (Synthroid, Levoxyl) 125 MCG tablet Take 125 mcg by mouth in the morning.01/09/2023ctive ezetimibe (Zetia) 10 MG tablet Take 10 mg by mouth in the morning.01/25/2023ctive Vitamin D, Ergocalciferol, 44470 units capsule 1 capsule 1 (one) time each day at the same time.Active Pitavastatin Calcium (Livalo) 2 MG tablet 1 (one) time each day at the same time.Active cetirizine (ZyrTEC) 5 MG chewable tablet Chew Daily.Active cyclobenzaprine (Flexeril) 10 MG tablet Indications:MyalgiaTake 1 tablet (10 mg) by mouth at bedtime 90 tablet 304504/6Active acyclovir (Zovirax) 800 MG tablet Take 800 mg by mouth 3 (three) times a day as jtrwgd995Active cinnamon 500 MG capsule 4Active hydrocortisone (Anusol-HC) 2.5 % rectal cream USE DIRECTED BBOWHKMA77/30/2025Active Ozempic, 1 MG/DOSE, 4 MG/3ML solution pen-injector INJECT 1 MG UNDER THE SKIN EVERY WEEK DIRECTED.5Active nebivolol (Bystolic) 10 MG tablet Take 10 mg by mouth Daily5Active medroxyPROGESTERone (Provera) 2.5 MG tablet Indications:Postmenopausal HRT (hormone replacement therapy)Take 1 tablet (2.5 mg) by mouth Daily Take 1 tablet by mouth daily. 90 tablet ctive estradiol (Estrace) 1 MG tablet Indications:Postmenopausal HRT (hormone replacement therapy)Take 1 tablet (1 mg) by mouth Daily 90 tablet ctive Active Problems No known active problems Immunizations ImmunizationAdministration DatesNext DueInfluenza, injectable, quadrivalent, preservative free03/20/2022,07/05/2020,06/06/2019 Family History Medical HistoryRelationNameCommentsCoronary artery diseaseFatherNorm HyperlipidemiaFatherNormAnxiety disorderMotherNancyDiabetesMotherNancy FibromyalgiaMotherNancyHypertensionMotherNancyOsteoarthritisMotherNancy ParkinsonismMotherNancyMigrainesMother's SisterSheriMigrainesSisterLaurieStroke SisterLaurieRelationNameStatusCommentsFatherNormDeceasedMotherNancyDeceased Mother's SisterSheriSisterLaurie Social History Tobacco UseTypesPacks/DayYears UsedDateSmoking Tobacco: NeverSmokeless Tobacco: NeverAlcohol UseStandard Drinks/WeekCommentsYes0 (1 standard drink = 0.6 oz pure alcohol)1-2 drinks less than monthly in the past year. Caffeine intake: 1/2 can of pop per dayAUDIT-CAnswerDate RecordedQ1: How often do you have a drink containing alcohol?Monthly or less04/20/2025Q2: How many drinks containing alcohol do you have on a typical day when you are drinking?1 or Q3: How often do you have six or more drinks on one occasion?Never04/20/2025PHQ-2 AnswerDate RecordedPatient Health Questionnaire-2 Rvxqu979 CommentsNoSex and Gender InformationValueDate RecordedSex Assigned at Nkinnt4204/01/2023 11:36 AM EDTLegal YnmFvyqen36/15/2023 7:12 PM EDTGender GqvdlddkXbsait36/27/2023 11:36 AM EDTSexual OrientationNot on file Last Filed Vital Signs Vital SignReadingTime TakenCommentsBlood Iesgxiqg115/8404/20/2025 9:37 AM EDT Pulse--Temperature--Respiratory Rate--Oxygen Saturation--Inhaled Oxygen Concentration--Cmqvrt18 kg (150 lb)04/20/2025 9:37 AM VIAGznnjs473.5 cm (5' 2 ) 04/20/2025 9:37 AM EDTBody Mass Index27.44004/20/2025 9:37 AM EDT Plan of Treatment DateTypeDepartmentCare Team (Latest Contact Info)Smduzelbqzg69/21/2026 9:15 AM EDTOffice Visit NOMVj GUEVARA [address] [place] [address] Ruchi Rhodes, [address] [place] [address] Health MaintenanceDue DateLast DoneCommentsCT Bohswhraplba1968Colonoscopy 1970FIT1970FOBT01/20/19688191Jawxoqgtlnifz1968Colorectal Cancer Daezrifzr31/24/2025FIT-DNAInfluenza Vaccine (#1)05/07/2025 03/20/2022, 07/05/2020, 06/06/20197085Vkfvqlhaq74/06/202512/02/2024, 04/23/2023, 11/22/2020, Additional history existsPap Smear/10/2023, 04/02/2023 Cervical Cancer Czqvwqcht50/15/2030HPV/Ojhipb14, 04/02/2023, 03/20/2022, Additional history existsPneumococcal Vaccine: Pediatrics (0 to 5 Years) and At-Risk Patients (6 to 64 Years)Aged OutNo longer eligible based on patient's age to complete this topic Procedures Procedure NamePriorityDate/TimeAssociated DiagnosisCommentsIGP, APT HPV,RFX 16/18,46Gqupght19/15/2025 12:00 AM EDT Screening for malignant neoplasm of cervix MM TOMOSYNTHESIS SCREENING BI08/11/2024 12:21 PM EST THINPREP TIS PAP AND HPV MRNA E6/E7 WITH REFLEX TO HPV 16,18/77Nbvvhlz63/02/2024 12:00 AM EDT Screening for malignant neoplasm of cervix from Last 3 Months or Most Recently Relevant to Health Maintenance Results * IGP, APT HPV,RFX 16/18,45 (04/20/2025 12:00 AM EDT)ComponentValueRef RangeTest MethodAnalysis TimePerformed AtPathologist SignatureDiagnosis:CommentLABC[facility]P Comment:NEGATIVE FOR INTRAEPITHELIAL LESION OR MALIGNANCY.Specimen Adequacy: CommentLABCORPComment:Satisfactory for evaluation. No endocervical component is identified.Clinician Provided ICD10:CommentLABCORPComment:Z12.4Performed By:CommentLABCORPComment:Favio Whitt, Wood Pattern Maker ([facility])Cyto Comments.LABCORPNote:CommentLABCORPComment: The Pap smear is a screening test designed to aid in the detection of premalignant and malignant conditions of the uterine cervix. ??It is not a diagnostic procedure and should not be used as the sole means of detecting cervical cancer. ??Both false-positive and false-negative reports do occur. Test Methodology:CommentLABCORPComment: This liquid based ThinPrep(R) pap test was screened with the use of an image guided system. HPV AptimaNegativeNegativeLABCORPComment: This nucleic acid amplification test detects fourteen high-risk HPV types (16,18,31,33,35,39,45,51,52,56,58,59,66,68) without differentiation. Specimen (Source)Anatomical Location / LateralityCollection Method / Volume Collection TimeReceived YnxmRcbr07/ Narrative [facility] - 04/24/2025 7:07 PM EDT Performed at: 01 - [facility] [address] [facility] [place] ??[id number] Manager Travel: Allie Escalera MD, Phone: ??[phone] Performed at: ??02 - [facility] ??[id number] Manager Travel: Allie Escalera MD, Phone: ??[phone] Specimen Comment: No. of containers..01 ThinPrep Vial Authorizing ProviderResult TypeResult StatusWilliam Franck Rhodes DOLAB BLOOD ORDERABLESFinal ResultPerforming OrganizationAddressCity/State/ZIP CodePhone Number [facility] * MM TOMOSYNTHESIS SCREENING BI (08/11/2024 12:21 PM EST)Anatomical Region LateralityModalityOtherSpecimen (Source)Anatomical Location / Laterality Collection Method / VolumeCollection TimeReceived Time08/11/2024 12:21 PM EST Narrative 08/11/2024 12:21 PM EST [facility] ?[address] ? [place] [address] ? Mammography Report ? Signed ? Patient: SCHLETT,SUE C ? MR#: [id number] ?? : 1970 ?Acct:[id number] ?? Age/Sex: 54 / F ?ADM Date: 08/11/24 ?? Loc: MAMMO ? Attending Dr: RUCHI RHODES ? Ordering Physician: RUCHI RHODES ? Results: ? Date of Service: 08/11/24 ?Follow Up: ? Procedure(s): MM tomosynthesis screening BI ?? Accession Number(s): [id number] ? cc: RUCHI RHODES ; RICH LANGLEY D.O. ? Patient Name: ? SUE SCHLETT ? MR#: [id number] ? : 1970 ? Exam Date: 08/11/2024 ?? Ordering Doctor: DR RUCHI RHODES ? RADIOLOGY REPORT ? PROCEDURE: ? MM TOMOSYNTHESIS SCREENING BI ? COMPARISON: ? MM TOMOSYNTHESIS SCREENING BI, 04/23/2023. ??MG MAMM SCREEN 3D ?? GISSEL CAD, 12/26/2021. ??MG MAMM SCREEN 3D GISSEL CAD, 11/22/2020. ??MG MAMM GISSEL SCRN W ?? CAD DIG, 04/11/2013. ? INDICATIONS: ? Screening ? Calculator Name ? NCI Breast Cancer Risk Assessment Tool ?? 5 Year Breast Cancer Risk ? 1.20% ?? Lifetime Breast Cancer Risk ? 8.10% ?? Personal Breast Cancer ?No ?? Personal Ovarian Cancer ? No ?? Treatments ? None ?? Family Cancers ? Grandfather-paternal with lung/liver cancer at age 70; ?? Aunt-paternal with breast cancer at age ??60; Grandfather-maternal with ?? prostate.lung cancer at age 70. ? LOCATION: ? [facility] ? BREAST COMPOSITION: ? There are scattered areas of fibroglandular density. ? FINDINGS: ? DIAGNOSTIC CATEGORY 2--BENIGN FINDING: ? RIGHT BREAST: ??No significant suspicious finding. ??Scattered benign-appearing ?? calcifications are present. ??No significant change has occurred. ? LEFT BREAST: ??No significant suspicious finding. ??Scattered benign-appearing ?? calcifications are present. ??No significant change has occurred. ? RECOMMENDATIONS: ? ROUTINE MAMMOGRAM AND CLINICAL EVALUATION IN 12 MONTHS. ? PLEASE NOTE: ??A NORMAL MAMMOGRAM DOES NOT EXCLUDE THE POSSIBILITY OF BREAST ?? CANCER. ??A CLINICALLY SUSPICIOUS PALPABLE LUMP SHOULD BE BIOPSIED. ? Dictated by: Wilder Gomez M.D. on 08/11/2024 at 12:18 ? Approved by: Wilder Gomez M.D. on 08/11/2024 at 12:20 ? Dictated By: ?Wilder Gomez M.D. ? Signed By: ?08/11/24 1221 ? DD/ 1221 ? TD/TT: ? Estate Agent: Procedure Note Radiology, Radiologist, MD - 08/11/2024 [place] [address] Mammography Report Signed Patient: SUE GONZALEZ CMR#: [id number] : 1970Acct:[id number] Age/Sex: 54 / FADM Date: 08/11/24 Loc: MAMMO Attending Dr: RUCHI RHODES Ordering Physician: RUCHI RHODESResults: Date of Service: 08/11/24Follow Up: Procedure(s): MM tomosynthesis screening BI Accession Number(s): [id number] cc: RUCHI RHODES ; RICH LANGLEY D.O. Patient Name: SUE GONZALEZ MR#: [id number] : 1970 Exam Date: 08/11/2024 Ordering Doctor: DR RUCHI RHODES RADIOLOGY REPORT PROCEDURE: MM TOMOSYNTHESIS SCREENING BI COMPARISON: MM TOMOSYNTHESIS SCREENING BI, 04/23/2023. MG MAMM UAUAYM1A GISSEL CAD, 12/26/2021. MG MAMM SCREEN 3D GISSEL CAD, 11/22/2020. MG MAMM BILSCRN W CAD DIG, 04/11/2013. INDICATIONS: Screening Calculator Name NCI Breast Cancer Risk Assessment Tool 5 Year Breast Cancer Risk 1.20% Lifetime Breast Cancer Risk 8.10% Personal Breast Cancer No Personal Ovarian Cancer No Treatments None Family Cancers Grandfather-paternal with lung/liver cancer at age 70; Aunt-paternal with breast cancer at age 60; Grandfather-maternal with prostate.lung cancer at age 70. LOCATION: [facility] BREAST COMPOSITION: There are scattered areas of fibroglandulardensity. FINDINGS: DIAGNOSTIC CATEGORY 2--BENIGN FINDING: RIGHT BREAST: No significant suspicious finding. Scatteredbenign-appearing calcifications are present. No significant change has occurred. LEFT BREAST: No significant suspicious finding. Scatteredbenign-appearing calcifications are present. No significant change has occurred. RECOMMENDATIONS: ROUTINE MAMMOGRAM AND CLINICAL EVALUATION IN 12 MONTHS. PLEASE NOTE: A NORMAL MAMMOGRAM DOES NOT EXCLUDE THE POSSIBILITY OFBREAST CANCER. A CLINICALLY SUSPICIOUS PALPABLE LUMP SHOULD BE BIOPSIED. Dictated by: Wilder Gomez M.D. on 08/11/2024 at 12:18 Approved by: Wilder Gomez M.D. on 08/11/2024 at 12:20 Dictated By: Wilder Gomez M.D. Signed By:08/11/24 1221 DD/ 1221 TD/TT: Estate Agent: Authorizing ProviderResult TypeResult StatusWillanna Rhodes DOCLINISYNC IMAGING Final Result * THINPREP TIS PAP AND HPV MRNA E6/E7 WITH REFLEX TO HPV 16,18/45 (04/07/2024 12:00 AM EDT)ComponentValueRef RangeTest MethodAnalysis TimePerformed At Pathologist SignatureCLINICAL INFORMATIONQUESTComment:Routine examLMPQUEST Comment:REV. PAPQUESTComment:NEG HRTPREV. BXQUESTComment:None givenSOURCE QUESTComment:None givenSTATEMENT OF ADEQUACYQUESTComment: Satisfactory for evaluation. Endocervical/transformation zone component absent. INTERPRETATION/RESULTQUESTComment: Cytology Results: Negative for intraepithelial lesion or malignancy. COMMENTQUESTComment: This Pap test has been evaluated with computer assisted technology. CYTOTECHNOLOGISTQUESTComment: LXT, CT(ASCP) CT screening location: [place] [address]. (ALWAYS MESSAGE)QUESTComment: EXPLANATORY NOTE: The Pap is a screening test for cervical cancer. It is not a diagnostic test and is subject to false negative and false positive results. It is most reliable when a satisfactory sample, regularly obtained, is submitted with relevant clinical findings and history, and when the Pap result is evaluated along with historic and current clinical information. HPV MRNA E6/E7Not DetectedNot DetectedQUESTComment: Methodology: Technical Sales Representative-Mediated Amplification This assay detects E6/E7 viral messenger RNA (mRNA) from 14 high-risk HPV types (16,18,31,33,35,39,45,51,52,56,58,59,66,68). Cervical sources are required for HPV testing. If a vaginal source from a patient who has had a total hysterectomy with removal of cervix was submitted, please contact the testing laboratory for alternative testing options. For additional information, please refer to http://education.Social Shop/faq/ZPJ534w3 (This link if provided for information/ educational purposes only.) Specimen (Source)Anatomical Location / LateralityCollection Method / Volume Collection TimeReceived TimeSwab (Endocervix)/11/2023 2:58 AM EDT Narrative Resulting Agency Comment Performing Organization Information ?Site ID: [id number] ?Name: [facility] ?Address: [address] [place] [address], [address] [place] [phone] ?Director: Nate Schreiber MD Authorizing ProviderResult TypeResult StatusWillanna Rhodes DOL CYTOLOGY ORDERABLESFinal ResultPerforming OrganizationAddressCity/State/ZIP CodePhone Number [facility] from Last 3 Months or Most Recently Relevant to Health [place] [address] [place] [address] Care Teams Team MemberRelationshipSpecialtyStart DateEnd Date Rich Langley MD [address] [place] [address] [place] [address] PCP - GeneralInternal Medicine04/02/23 Lubna Soni NP [address] [place] [address] Nurse PractitionerNeurology12/05/24
--- NOTE | 2025-09-04 11:03 | MM_ITS ---
Patient Name: MAIRA GONZALEZ MR#: [id number] : 1970 Exam Date: 09/04/2025 Ordering Doctor: DR SUZANNE LANGLEY D.O. RADIOLOGY REPORT PROCEDURE: MM TOMOSYNTHESIS SCREENING BI COMPARISON: MM TOMOSYNTHESIS SCREENING BI, 08/11/2024. MM TOMOSYNTHESIS SCREENING BI, 04/23/2023. MG MAMM SCREEN 3D GISSEL CAD, 12/26/2021. MG MAMM GISSEL SCRN W CAD DIG, 04/11/2013. INDICATIONS: Screening Calculator Name NCI Breast Cancer Risk Assessment Tool 5 Year Breast Cancer Risk 1.30% Lifetime Breast Cancer Risk 8.00% Personal Breast Cancer No Personal Ovarian Cancer No Treatments None Family Cancers Grandfather-paternal with lung/liver cancer at age 70; Aunt-paternal with breast cancer at age ~60; Grandfather-maternal with prostate.lung cancer at age 70. LOCATION: [facility] BREAST COMPOSITION: There are scattered areas of fibroglandular density. FINDINGS: RIGHT BREAST: No significant suspicious finding. LEFT BREAST: No significant suspicious finding. DIAGNOSTIC CATEGORY 1--NEGATIVE. RECOMMENDATIONS: ROUTINE MAMMOGRAM AND CLINICAL EVALUATION IN 12 MONTHS. Dictated by: Jeff Burks DO on 09/04/2025 at 11:59 Approved by: Jeff Burks DO on 09/04/2025 at 12:01
== END 2025-09-04 10:56 | disposition home or self-care (01) ==
LOC: MAMMO 10:55
PROVIDERS: Family Provider Obstetrics & Gynecology; PCP Internal Medicine; Visit Provider Internal Medicine
DX: Z12.31 Encounter for screening mammogram for malignant neoplasm of breast (principal); Z80.1 Family history of malignant neoplasm of trachea, bronchus and lung; Z80.3 Family history of malignant neoplasm of breast; Z80.42 Family history of malignant neoplasm of prostate; Z80.8 Family history of malignant neoplasm of other organs or systems
CPT/HCPCS: 77063; 77067